=== PATIENT | female | born 1975 | race Caucasian/White ===

== ENCOUNTER 2024-11-18 08:15 | Outpatient (CLI) | payer BC, SELFPAY ==
--- NOTE | ~2024-11-18 | CT_ITS ---
EXAMINATION: CT soft tissue neck w con DATE: 11/18/2024 08:41 INDICATION: Mass of neck. TECHNIQUE: Computed tomography (CT) of the neck was performed with 75 mL Omnipaque-350 intravenous co ntrast. Automated exposure control and iterative reconstruction technique were employed. The dose-nakul gth product was 349.07 mGy-cm. COMPARISON: None FINDINGS: There are no pathologically enlarged lymph nodes. There is 0% stenosis of the proximal inte rnal carotid arteries relative to normal distal artery lumen diameters. There is mild cervical spondy losis. IMPRESSION: 1. No abnormal mass or lymphadenopathy. Reviewed, dictated and finalized at location A. R CLEANER OPERATOR
== END 2024-11-18 08:16 | disposition home or self-care (01) ==
LOC: MICIMG 08:16
PROVIDERS: PCP Physician Assistant; Visit Provider Physician Assistant
DX: R22.1 Localized swelling, mass and lump, neck (principal)
CPT/HCPCS: 70491; Q9967

== ENCOUNTER 2025-10-26 08:37 | Outpatient (CLI) | payer BC, SELFPAY ==
--- NOTE | ~2025-10-26 | US_ITS ---
EXAMINATION: US pelvic complete w TV, 10/26/2025 8:40 AGRICULTURAL SPECIALIST HISTORY: unspecified endometrial hyperplasia Comparison: None Technique: Wright-scale and color Doppler images were obtained. Findings: Uterus: Uterus anteverted 6.6 x 3.6 x 4.1 cm. . Endometrium 2.4 mm. Right Ovary:Right ovary not identified. Left Ovary: Left ovary not identified. Free Fluid: None Impression: Visualized endometrium appears unremarkable. Ovaries bilaterally were not identified Reviewed, dictated and finalized at location P. CULTURAL SPECIALIST Impression: Visualized endometrium appears unremarkable. Ovaries bilaterally were not ident ified
== END 2025-10-26 08:38 | disposition home or self-care (01) ==
LOC: MICIMG 08:38
PROVIDERS: PCP Physician Assistant; Visit Provider Nurse Practitioner Women's Health
DX: N85.00 Endometrial hyperplasia, unspecified (principal); N95.1 Menopausal and female climacteric states
CPT/HCPCS: 76830; 76856